=== PATIENT | male | born 1950 | race Caucasian/White ===

== ENCOUNTER → 2018-11-22 | Outpatient (CLI) | payer MEDICARE, BC | LOC: LABPAT 17:17 | PROVIDERS: ATTEND Orthopaedic Surgery | DX: Z01.812 Encounter for preprocedural laboratory examination (principal) | CPT/HCPCS: 87070 ==

== ENCOUNTER 2018-12-12 11:29 | Inpatient (IN) | payer BC, MEDICARE ==
--- NOTE | 2018-12-11 12:20 | HP ---
HISTORY AND PHYSICAL REASON FOR ADMISSION: Surgery scheduled for 12/12/2018 HISTORY OF PRESENT ILLNESS: Nick Betts is a 68-year-old patient seen with symptomatic right knee osteoarthritis. We discussed treatment options. He elected to proceed with right total knee arthroplasty. Consent regarding the procedure was obtained. Medical clearance was provided by Dr. Ribera. PAST MEDICAL HISTORY: Hypertension, [id number] diabetes, hyperlipidemia. PAST SURGICAL HISTORY: Noncontributory. MEDICATIONS: Amlodipine, lisinopril, metformin, propranolol. ALLERGIES: None. SOCIAL HISTORY: He smokes 5-7 cigarettes a day. PHYSICAL EXAMINATION: Physical evaluation of the right knee is range of motion is negative 4-100 degrees. Tenderness medial joint line. Crepitus medial and patellofemoral compartments range of motion. Ligaments are stable. Hip rotation without pain. Distal neurovascular exam intact. RADIOGRAPHS: Radiographs of the right knee revealed severe medial and severe patellofemoral compartment osteoarthritis. IMPRESSION: 1. Right knee osteoarthritis. 2. Hypertension. 3. Hyperlipidemia. 4. Jvv-cscezkw-grndrxctf diabetes. PLAN: Right total knee arthroplasty. Surgery scheduled for 12/12/2018. MMODL / IJN: [id number] /
[~2018-12-12 11:29] MED LIST: ACETAMINOPHEN TAB 500 MG TAB PO ONE; DEXAMETHASONE SOD PHOSPHATE 10 MG/ML 1 ML VIAL IV ONE; LACTATED RINGERS 1,000 ML IV SCH; MELOXICAM 7.5 MG TAB PO ONE; MIDAZOLAM 2 MG/2 ML VIAL IV PRN; ONDANSETRON 4 MG/2 ML VIAL IVP ONE; SCOPOLAMINE 1.5MG/72HR PATCH TRANSDERM ONE; TRANEXAMIC ACID 1,000 MG in SODIUM CHLORIDE 0.9% 100 ML IVPB ONE; ceFAZolin IN SWFI 2 GM/20 ML SYRINGE IVP ONE
[2018-12-12] MEDS ORDERED: LIDOCAINE 1% 20 ML VIAL (10MG/ML) FOR IV START INTRADERMA ONE (11:58)
[2018-12-12 12:07] LABS: Glucose,Whole Blood 109 mg/dL (75-99)
[2018-12-12] MEDS ORDERED: fentaNYL (PF) 50 MCG/ML 2 ML AMP IV ONE (12:20)
[2018-12-12] MEDS ORDERED: ROPIVACAINE 246.25 MG, EPINEPHrine 0.5 MG, KETOROLAC 30 MG, WATER FOR INJECTION,STERILE... MISCELLANE ONE ×4 (12:52)
[2018-12-12] MEDS ORDERED: PROPOFOL 10 MG/ML 20 ML VIAL IV ONE (13:14)
[2018-12-12] MEDS ORDERED: SUCCINYLCHOLINE CHLORIDE VIAL 200 MG/10 ML VIAL IV ONE (13:14)
[2018-12-12] MEDS ORDERED: fentaNYL (PF) 50 MCG/ML 2 ML AMP ONE (13:14)
[2018-12-12] MEDS ORDERED: LIDOCAINE 1% INJ 10MG/ML (20 ML MDV) ONE (13:14)
[2018-12-12] MEDS ORDERED: SODIUM CHLORIDE 0.9% 100 ML BAG ONE (13:14)
[2018-12-12] MEDS ORDERED: TRANEXAMIC ACID 1,000 MG/10 ML VIAL ONE (13:14)
[2018-12-12] MEDS ORDERED: MIDAZOLAM 2 MG/2 ML VIAL ONE (13:14)
[2018-12-12] MEDS ORDERED: PHENYLEPHRINE-0.9% NACL SYG 1 MG/10 ML SYRINGE ONE (13:14)
[2018-12-12] MEDS ORDERED: ceFAZolin 3,000 MG in SODIUM CHLORIDE 0.9% IRRIGATIO 3,000 ML IRRIGATION ONE (13:57)
[2018-12-12] MEDS ORDERED: LACTATED RINGERS 1,000 ML IV ONE (13:58)
[2018-12-12] MEDS ORDERED: ROPIVACAINE 1,100 MG, SODIUM CHLORIDE 0.9% 500 ML 330 ML MISCELLANE PRN ×2 (15:10)
--- NOTE | 2018-12-12 15:10 | P.ONQ ---
Anesthesiology Proc Note - PNB - Peripheral Nerve Block Performed Right Adductor Canal Infusion Time Out Performed: Yes Procedure Start Time: 12:17 Indication: Acute Post-Operative Pain Specifically requested for management of pain by DrJerome: Karl Steele Sedation Type: Sedate with meaningful contact maintained Preparation: Sterile Prep Position: Supine Catheter Depth at Skin (cm): 7 Catheter: Indwelling Needle Types: Other (see comment) (Pajunk) Needle Size: 100mm (4") Needle Gauge: 18 Technique: Ultrasound Injectate: 0.5% Ropivacaine (see comment for volume) (20) Blood Aspirated: No Pain Paresthesia on Injection Noted: No Resistance on Injection: Normal Events: Uneventful and Well Tolerated
--- NOTE | 2018-12-12 15:16 | P.OP ---
Date of Procedure: 12/12/18 Preoperative Diagnosis: Right knee osteoarthritis Postoperative Diagnosis: Right knee osteoarthritis Procedure(s) Performed: Right total knee arthroplasty Implants: 1. Depuy attune size 8 right cruciate-retaining cemented femur 2. Depuy attune size 8 fixed-bearing cemented tibial baseplate 3. Depuy attune size 8 fixed-bearing cruciate retaining 6 mm polyethylene tibial insert 4. Depuy attune 41 mm all polyethylene cemented patella Anesthesia: regional (Adductor canal catheter), local, spinal Surgeon: Karl Steele [employer] Sales Consultant #1: Lencho Díaz Estimated Blood Loss (ml): 50 Pathology: other (Bone) Condition: stable Disposition: PACU Indications for Procedure: 68-year-old patient seen with symptomatic right knee osteoarthritis. After having treatment options discussed, he elected to proceed with total knee a rthroplasty. Operative Findings: see description of procedure Description of Procedure: Patient was taken to the operative suite after having an adductor canal catheter placed by the department of anesthesia for postoperative pain management. Patient underwent a spinal anesthetic by the department of anesthesia. Patient was given preoperative IV intake antibiotics and TXA. A well-padded tourniquet was placed about the right lower extremity. The lower extremity was then prepped and draped in the normal sterile orthopedic fashion. The extremity was elevated, a tourniquet was insufflated to 300. A standard anterior incision was made sharply through skin. Dissection was taken down through the subcutaneous soft tissues down to the extensor mechanism. A medial arthrotomy was performed, patella was everted and knee was flexed. There was advanced osteoarthritis noted. I introduced my distal intramedullary femoral drill. I then introduced the distal femoral cutting jig. Binh LOPEZ secured the cutting jig with 2 pins. I held retractors in position while Binh LOPEZ performed the distal femoral resection through the guide area we now removed her distal femoral cutting guide. We now placed our 4-in-1 femoral cutting block and positioned and it was secured with 2 pins by Binh LOPEZ while I held the block in position. The distal femoral finishing was now completed. A proximal tibial cutting guide was positioned. I held the guide in the appropriate position with both hands well Binh LOPEZ inserted stabilizing pins into the guide. Proximal tibial cut was made. We now placed a trial femoral component into position, along with an appropriate size tibial tray and insert. We now took the knee through range of motion and had full extension good flexion and good overall soft tissue balance noted. The patella was everted and stabilized with 2 towel clips held by Binh LOPEZ while I performed a flush with patellar quad tendon utilizing a fresh sawblade. We templated the patella, appropriate drill holes were made. An appropriate trial patella was positioned, knee was taken through full range of motion with the patella tracking very nicely. The trial patella was removed. Drill holes were made through the femoral component. All trial components were removed after marking off the appropriate rotation of the tibia. Retractors were now positioned along the proximal tibia. An appropriate keel punch was made with the appropriate size tibial guide by myself on Binh LOPEZ assisted by holding retractors. At this point appropriate size implants were chosen and opened. The joint was irrigated copiously with pulse lavage mechanical irrigation. The posterior capsule was infiltrated with local analgesic. The wound was irrigated with pulse lavage mechanical irrigation. We mixed antibiotic methylmethacrylate. We placed the knee into flexion. We placed multiple retractors assisted by Binh LOPEZ to expose the proximal tibia. Once the methyl methacrylate was ready, the tibial component was cemented into place removing any excess methylmethacrylate form by both myself and Binh LOPEZ. The femoral component was cemented into place removing the removing any excess methylmethacrylate performed by both myself and Binh LOPEZ. We then inserted the appropriate size polyethylene tibial insert. We made sure that it was locked into position. We took the knee into full extension, and then back in a flexion making sure we had removed any excess methylmethacrylate. The patellar component was then cemented down and secured with clamp. Excess methylmethacrylate removed. We kept the knee in full extension, patellar clamp in position until methylmethacrylate had hardened. Once it had hardened the patellar clamp was removed. The knee was taken through full range of motion. The patella tracked nicely. There was good soft tissue balancing. The tourniquet was now released. Additional hemostasis was achieved via electrocautery. A second gram of TXA was given. The wound again was irrigated with pulse lavage mechanical irrigation. The superficial soft tissues were infiltrated local analgesic. The extensor mechanism was repaired with Vicryl. We checked the repair with range of motion and it was stable. The subcutaneous soft tissues were repaired with Vicryl in layers. The skin was approximated with pernio/Dermabond. Sterile dressings were applied followed by loose web roll and Chava bandage. The patient was transferred to a bed, and taken to recovery in stable and satisfactory condition. Binh LOPEZ assisted with this complex procedure.
[2018-12-12] MEDS ORDERED: NALOXONE 0.4 MG/ML 1 ML VIAL IV PRN (15:17)
[2018-12-12] MEDS ORDERED: HYDROcodone/APAP 5-325MG 1 EACH TAB PO PRN (15:17)
[2018-12-12] MEDS ORDERED: ONDANSETRON 4 MG/2 ML VIAL IVP PRN (15:17)
[2018-12-12] MEDS ORDERED: traMADol 50 MG TAB PO PRN (15:17)
[2018-12-12] MEDS ORDERED: HYDROmorphone 0.5 MG/0.5 ML SYRINGE IVP PRN ×2 (15:17)
[2018-12-12] MEDS: HYDROmorphone 0.5 MG/0.5 ML SYRINGE IVP PRN ×3 (15:38→18:02)
--- NOTE | 2018-12-12 16:16 | XR ---
EXAMINATION TYPE: XR knee limited RT DATE OF EXAM: 12/12/2018 COMPARISON: None HISTORY: Post knee replacement TECHNIQUE: 2 view right knee FINDINGS: Tibial and femoral components of in place. No acute fractures are evident. Along the medial femoral condyle adjacent to the femoral prosthesis there is a disruption of the cortex which is felt to be postsurgical in nature. Postsurgical changes are evident within the soft tissues. IMPRESSION: 1. No displaced fractures evident. Tibial femoral components of in place. There is a cortical disrup tion along the medial femoral condyle which may be postsurgical in nature.
[2018-12-12 16:48] LABS: Glucose,Whole Blood 138 mg/dL (75-99)
--- NOTE | 2018-12-12 18:00 | P.CONS ---
History of Present Illness - Reason for Consult Consult date: 12/12/18 Medical management Requesting physician: Karl Steele - Chief Complaint Medical management - History of Present Illness 68-year-old male with PMH of diabetes mellitus, hypertension, hyperlipidemia, severe right knee osteoarthritis presents to [facility] for elective right knee replacement. Patient was seen and examined after surgery. Underwent right knee arthroplasty with addition of pain pump. There was no complications with the surgery. Patient complains of 8 out of 10 pain in his right knee. Patient denies any headaches, lower extremity edema, nausea, vomiting, fever, chills, cough, chest pain, shortness breath, palpitations, changes in urination or bowel habits. No changes in appetite or weight. Patient denies any dizziness, numbness/weak ness/tingling of the extremities. Review of Systems Pertinent positives and negatives as discussed in HPI, a complete review of systems was performed and all other systems are negative. Past Medical History Past Medical History: Diabetes Mellitus, Hyperlipidemia, Hypertension, Osteoarthritis (OA) History of Any Multi-Drug Resistant Organisms: None Reported Past Surgical History: Cholecystectomy, Tonsillectomy Past Anesthesia/Blood Transfusion Reactions: No Reported Reaction Smoking Status: Current every day smoker - Past Family History Mother Family Medical History: Cancer Sister(s) Family Medical History: Cancer Medications and Allergies Home Medications Medication Instructions Recorded Confirmed Type Aspirin [Adult Low Dose Aspirin EC] 81 mg PO DAILY 12/05/18 12/12/18 History Diabetes Health Tab 6 tab PO DAILY 12/05/18 12/12/18 History Escitalopram [Lexapro] 10 mg PO DAILY 12/05/18 12/12/18 History Lisinopril 40 mg PO DAILY 12/05/18 12/12/18 History Meloxicam [Mobic] 15 mg PO DAILY 12/05/18 12/12/18 History Propranolol HCl 80 mg PO QAM 12/05/18 12/12/18 History Rosuvastatin Calcium [Crestor] 20 mg PO DAILY 12/05/18 12/12/18 History amLODIPine BESYLATE [Norvasc] 10 mg PO DAILY 12/05/18 12/12/18 History metFORMIN HCL [Glucophage] 1,000 mg PO BID 12/05/18 12/12/18 History Allergies Allergy/AdvReac Type Severity Reaction Status Date / Time No Known Allergies Allergy Verified 12/12/18 11:51 Physical Exam Vitals: Vital Signs Temp Pulse Resp BP Pulse Ox 12/12/18 16:32 62 16 122/65 93 L 12/12/18 16:17 54 L 16 125/64 95 12/12/18 16:02 53 L 16 137/79 98 12/12/18 15:47 52 L 16 136/76 97 12/12/18 15:32 98 F 53 L 16 153/79 97 12/12/18 11:57 97.4 F L 59 L 16 169/81 98 Intake and Output 12/12/18 12/12/18 12/12/18 06:59 14:59 22:59 Intake Total 1301 400 Output Total 50 Balance 1301 350 Intake: IV 1301 400 Output: Estimated Blood Loss 50 General: [non toxic], [no distress], [appears at stated age] Derm: [warm], [dry] Head: [atraumatic], [normocephalic], [symmetric] Eyes: [EOMI], [no lid lag], [anicteric sclera] Mouth: [no lip lesion], [mucus membranes moist] Cardiovascular: [S1S2 reg], [no murmur], [positive DP pulse bilateral] Lungs: [CTA bilateral], [no rhonchi, no rales] , [no accessory muscle use] Abdominal: [soft], [ nontender to palpation], [no guarding], [no appreciable organomegaly] Ext: [no gross muscle atrophy], [no edema], [no contractures], [right knee restricted ROM due to pain, dressing applied] Neuro: [no focal neuro deficits] Psych: [Alert], [oriented], [appropriate affect] Results Labs: Abnormal Lab Results - Last 24 Hours (Table) 12/12/18 12/12/18 Range/Units 12:02 16:44 POC Glucose (mg/dL) 109 H 138 H (75-99) mg/dL Assessment and Plan Assessment: Assessment and Plan Hypertension Diabetes mellitus Hyperlipidemia Right knee osteoarthritis status post total knee replacement postop day 0 BP 122/65. Plan: Continue amlodipine, lisinopril, propranolol. Monitor vitals, adjust medications as necessary. Bnkmi-le-vpau glucose 138. Plan: Insulin sliding scale. Hypoglycemic precautions. Regular Accu-Cheks. Plan: Continue Lipitor. Management as per orthopedic surgery. DVT prophylaxis: [Lovenox] Discussed with: [Patient and family] Anticipated discharge: [Home] Anticipated discharge place: [1-2 days] A total of [30] minutes was spent on the care of this complex patient more than 50% of the time was spent in counseling and care coordination. Patient to remain full code. Thank you for this consult. Please call with any additional questions.
[2018-12-12] MEDS: ceFAZolin IN SWFI 2 GM/20 ML SYRINGE IVP SCH ×2 (18:03→23:52)
[2018-12-12] MEDS: LACTATED RINGERS 1,000 ML IV SCH ×2 (18:05→23:55)
[2018-12-12 18:27] VITALS: BMI 27.2
[2018-12-12] MEDS: HYDROcodone/APAP 5-325MG 1 EACH TAB PO PRN (19:53)
[2018-12-12 20:25] LABS: Glucose,Whole Blood 222 mg/dL (75-99)
[2018-12-12] MEDS: SENNOSIDES-DOCUSATE SODIUM 1 EACH TAB PO SCH (20:34)
[2018-12-12] MEDS: INSULIN ASPART (NovoLOG) 100 UNIT/ML VIAL SQ SCH (20:34)
[2018-12-13] MEDS: HYDROcodone/APAP 5-325MG 1 EACH TAB PO PRN ×2 (02:01→09:48)
[2018-12-13] MEDS: INSULIN ASPART (NovoLOG) 100 UNIT/ML VIAL SQ SCH ×4 (07:20→20:55)
[2018-12-13 07:30] LABS: Basophils % (A) 0 %; Eosinophils # (A) 0.1 k/uL (0-0.7); Eosinophils % (A) 1 %; HCT 35.1 % (39.0-53.0); HGB 11.4 gm/dL (13.0-17.5); Lymphocytes # (A) 1.8 k/uL (1.0-4.8); Lymphocytes % (A) 14 %; MCH 29.2 pg (25.0-35.0); MCHC 32.5 g/dL (31.0-37.0); Mean Platelet Volume 7.7; Monocytes # (A) 0.7 k/uL (0-1.0); Monocytes % (A) 6 %; Neutrophils % (A) 78 %; Platelet Count 208 k/uL (150-450); RDW 14.3 % (11.5-15.5); WBC 12.8 k/uL (3.8-10.6)
[2018-12-13 07:32] LABS: Glucose,Whole Blood 114 mg/dL (75-99)
[2018-12-13] MEDS: LACTATED RINGERS 1,000 ML IV SCH (09:45)
[2018-12-13] MEDS: amLODIPine 10 MG TAB PO SCH (09:47)
[2018-12-13] MEDS: LISINOPRIL 20 MG TAB PO SCH (09:47)
[2018-12-13] MEDS: ESCITALOPRAM 10 MG TAB PO SCH (09:47)
[2018-12-13] MEDS: MELOXICAM 7.5 MG TAB PO SCH (09:48)
[2018-12-13] MEDS: ATORVASTATIN 40 MG TAB PO SCH (09:48)
[2018-12-13] MEDS: PROPRANOLOL 40 MG TAB PO SCH (09:48)
[2018-12-13] MEDS: ENOXAPARIN 30 MG/0.3 ML SYRINGE SQ SCH ×2 (09:48→20:55)
[2018-12-13] MEDS: ASPIRIN 81 MG PO SCH (09:48)
--- NOTE | 2018-12-13 09:57 | P.PN ---
Subjective Progress Note Date: 12/13/18 Principal diagnosis: right knee pain Patient is a 68-year-old male past medical history of osteoarthritis of the right knee, diabetes mellitus, hypertension, and dyslipidemia who presented to [facility] for elective right total knee arthroplasty. Patient underwent procedure without any immediate postoperative complications on 12/12/18. Patient seen and examined at bedside. He is having some right knee pain after ambulating and doing the stairs with physical therapy. He denies any chest pain, shortness of breath, nausea, or vomiting. He states that his blood sugars typically run between 116 and 130 at home. He takes metformin twice daily and was taking a diabetic health tablet. His sense held the diabetic health tablet as it contained vitamin D and vitamin E. He would like to start this after surgery. Objective - Vital Signs Vital signs: Vital Signs Temp 98.3 F 12/13/18 07:00 Pulse 80 12/13/18 07:00 Resp 16 12/13/18 07:00 BP 137/76 12/13/18 07:00 Pulse Ox 98 12/13/18 07:00 Intake & Output 12/12/18 12/13/18 12/13/18 18:59 06:59 18:59 Intake Total 1701 1600 Output Total 50 3 Balance 1651 1597 Intake: IV 1701 Intake, IV Titration 1600 Amount Lactated Ringers 1,000 ml 1600 @ 100 mls/hr IV .Q10H [facility] Rx#:[id number] Output: Urine 3 Estimated Blood Loss 50 Other: # Voids 1 - Exam General: non toxic, no distress, appears at stated age Derm: compression stocking and dressing inplace right leg without drainage noted. warm, dry Head: atraumatic, normocephalic, symmetric Eyes: EOMI, no lid lag, anicteric sclera Mouth: no lip lesion, mucus membranes moist Cardiovascular: S1S2 reg, no murmur, positive posterior tibial pulse bilateral, Lungs: decreased bs bilateral, no rhonchi, no rales , no accessory muscle use Abdominal: soft, nontender to palpation, no guarding, no appreciable organomegaly Ext: no gross muscle atrophy, no edema, no contractures Neuro: CN II-XI grossly intact, no focal neuro deficits Psych: Alert, oriented, appropriate affect - Labs CBC & Chem 7: 12/13/18 07:09 Labs: Abnormal Lab Results - Last 24 Hours (Table) 12/12/18 12/12/18 12/12/18 Range/Units 12:02 16:44 20:14 WBC (3.8-10.6) k/uL RBC (4.30-5.90) m/uL Hgb (13.0-17.5) gm/dL Hct (39.0-53.0) % Neutrophils # (1.3-7.7) k/uL POC Glucose (mg/dL) 109 H 138 H 222 H (75-99) mg/dL 12/13/18 12/13/18 Range/Units 07:02 07:09 WBC 12.8 H (3.8-10.6) k/uL RBC 3.90 L (4.30-5.90) m/uL Hgb 11.4 L (13.0-17.5) gm/dL Hct 35.1 L (39.0-53.0) % Neutrophils # 10.0 H (1.3-7.7) k/uL POC Glucose (mg/dL) 114 H (75-99) mg/dL Assessment and Plan Assessment: Patient is a 68 yo male here for elective right total knee arthroplasty. DM 2 well controlled, on orals - resume metformin on discharge - resume diabetes health tablet in 5 days, if okay with ortho Acute blood loss anemia - outpatient follow up with PCP - anticipate quick recovery - no need for iron therapy at this time. HTN, controlled - continue norvasc, propranolol, lisinopril HLD - continue crestor Medically optimized for discharge at the discretion of ortho. Thank you for allowing us to participate in the care of this patient. Do not hesitate to contact us with questions. Someone can be reached from the [facility] hospitalist group at all hours of the day at [phone].
--- NOTE | 2018-12-13 10:35 | P.PN ---
Progress Note - Text 12/13 094 68-year-old male status post total knee replacement by Dr. Steele. Patient has a On-Q pump for postop pain control with the solution running at 8 mL an hour patient is not comfortable because he has been exercising his leg. I advised him to continue the On-Q pump infusion along with oral narcotics
[2018-12-13 12:01] LABS: Glucose,Whole Blood 167 mg/dL (75-99)
[2018-12-13 15:55] LABS: Hemoglobin A1C 6.3 % (4.0-6.0)
[2018-12-13] MEDS ORDERED: HYDROcodone/APAP 7.5-325MG 1 EACH TAB PO PRN ×2 (15:57)
--- NOTE | 2018-12-13 16:00 | P.PN ---
Subjective Progress Note Date: 12/13/18 Principal diagnosis: Status post right total knee arthroplasty Patient evaluated today at bedside on a few separate occasions. He is doing fairly well. He does note some increase in pain and difficulty getting out of bed. Denies any chest pain or shortness of breath. Objective - Vital Signs Vital signs: Vital Signs Temp 98 F 12/13/18 15:00 Pulse 62 12/13/18 15:00 Resp 12 12/13/18 15:00 BP 148/64 12/13/18 15:00 Pulse Ox 96 12/13/18 15:00 Intake & Output 12/12/18 12/13/18 12/13/18 18:59 06:59 18:59 Intake Total 1701 1600 Output Total 50 3 Balance 1651 1597 Intake: IV 1701 Intake, IV Titration 1600 Amount Lactated Ringers 1,000 ml 1600 @ 100 mls/hr IV .Q10H [facility] Rx#:[id number] Output: Urine 3 Estimated Blood Loss 50 Other: # Voids 1 - Exam Right lower extremity: Incision is clean, dry, and intact. The exofin fusion tape is in good condition. There is minimal soft tissue swelling and ecchymosis surrounding the medial and lateral aspects of the incision. Calf is soft, no tenderness with palpation. Plantar flexion, dorsiflexion, EHL, FHL are intact. Sensory exam to light touch throughout the extremity is intact, dorsal pedis pulses 2+. - Labs CBC & Chem 7: 12/13/18 07:09 Labs: Abnormal Lab Results - Last 24 Hours (Table) 12/12/18 12/12/18 12/13/18 Range/Units 16:44 20:14 07:02 WBC (3.8-10.6) k/uL RBC (4.30-5.90) m/uL Hgb (13.0-17.5) gm/dL Hct (39.0-53.0) % Neutrophils # (1.3-7.7) k/uL POC Glucose (mg/dL) 138 H 222 H 114 H (75-99) mg/dL Hemoglobin A1c (4.0-6.0) % 12/13/18 12/13/18 12/13/18 Range/Units 07:09 07:09 11:49 WBC 12.8 H (3.8-10.6) k/uL RBC 3.90 L (4.30-5.90) m/uL Hgb 11.4 L (13.0-17.5) gm/dL Hct 35.1 L (39.0-53.0) % Neutrophils # 10.0 H (1.3-7.7) k/uL POC Glucose (mg/dL) 167 H (75-99) mg/dL Hemoglobin A1c 6.3 H (4.0-6.0) % Assessment and Plan Plan: Assessment: Postop day #1 status post right total knee arthroplasty Plan: Pain control, we'll increase Micanopy to 7.5 mg/325 mg GI and DVT prophylaxis, continue current medication Wound care instructions discussed Icing and elevating techniques discussed Continue her physical therapy Medical recommendations Discharge planning: With patients increase in pain and difficulty with getting out of bed, we'll keep patient one additional night, and patient status has been made, hopeful discharge home tomorrow Time with Patient: Less than 30
[2018-12-13 17:10] LABS: Glucose,Whole Blood 87 mg/dL (75-99)
[2018-12-13 20:37] LABS: Glucose,Whole Blood 214 mg/dL (75-99)
[2018-12-13] MEDS: SENNOSIDES-DOCUSATE SODIUM 1 EACH TAB PO SCH (20:55)
[2018-12-13] MEDS: HYDROmorphone 0.5 MG/0.5 ML SYRINGE IVP PRN (20:55)
[2018-12-13] MEDS: HYDROcodone/APAP 7.5-325MG 1 EACH TAB PO PRN (22:37)
[2018-12-14] MEDS: HYDROcodone/APAP 7.5-325MG 1 EACH TAB PO PRN ×2 (02:54→08:59)
[2018-12-14 07:30] LABS: Glucose,Whole Blood 142 mg/dL (75-99)
[2018-12-14 08:12] LABS: HCT 32.8 % (39.0-53.0); HGB 10.6 gm/dL (13.0-17.5); MCH 29.3 pg (25.0-35.0); MCHC 32.2 g/dL (31.0-37.0); MCV 90.9 fL (80.0-100.0); Platelet Count 162 k/uL (150-450); RBC 3.61 m/uL (4.30-5.90); RDW 14.1 % (11.5-15.5)
[2018-12-14] MEDS: MELOXICAM 7.5 MG TAB PO SCH (08:58)
[2018-12-14] MEDS: PROPRANOLOL 40 MG TAB PO SCH (08:59)
[2018-12-14] MEDS: ESCITALOPRAM 10 MG TAB PO SCH (09:00)
[2018-12-14] MEDS: ATORVASTATIN 40 MG TAB PO SCH (09:00)
[2018-12-14] MEDS: ENOXAPARIN 30 MG/0.3 ML SYRINGE SQ SCH (09:00)
[2018-12-14] MEDS: LISINOPRIL 20 MG TAB PO SCH (09:00)
[2018-12-14] MEDS: amLODIPine 10 MG TAB PO SCH (09:00)
[2018-12-14] MEDS: ASPIRIN 81 MG PO SCH (09:00)
[2018-12-14] MEDS: INSULIN ASPART (NovoLOG) 100 UNIT/ML VIAL SQ SCH ×2 (09:01→14:03)
[2018-12-14] MEDS ORDERED: MAGNESIUM HYDROXIDE 2,400 MG/10 ML CUP PO PRN (09:03)
[2018-12-14 09:21] VITALS: BP 174/80; PULSE 58; RESP 12; TEMP 98.3
--- NOTE | 2018-12-14 10:57 | P.PN ---
Subjective Progress Note Date: 12/14/18 Principal diagnosis: right knee pain Patient is a 68-year-old male past medical history of osteoarthritis of the right knee, diabetes mellitus, hypertension, and dyslipidemia who presented to [facility] for elective right total knee arthroplasty. Patient underwent procedure without any immediate postoperative complications on 12/12/18. He struggled with pain control on 12/13. Patient seen and examined at bedside. Pain is better, still unable to lift his leg onto the bed on his own, and concerned about this. I encouraged him to speak with ortho about this, he also stated that if it didn't get better he woud come back to the hospital. I again encouraged that he call the ortho office first for further instruction. He has been struggling with constipation and is currently working on a dose of miralax and prune juice. No chest pain, sob, or nausea. Objective - Vital Signs Vital signs: Vital Signs Temp 98.3 F 12/14/18 07:00 Pulse 58 L 12/14/18 07:00 Resp 12 12/14/18 07:00 BP 174/80 12/14/18 07:00 Pulse Ox 97 12/14/18 07:00 Intake & Output 12/13/18 12/14/18 12/14/18 18:59 06:59 18:59 Intake Total 400 500 Balance 400 500 Intake: Oral 400 500 Other: Voiding Method Toilet Toilet # Voids 2 - Exam General: non toxic, no distress, appears at stated age Derm: compression stocking and dressing in place right leg without drainage noted. warm, dry Head: atraumatic, normocephalic, symmetric Eyes: EOMI, no lid lag, anicteric sclera Mouth: no lip lesion, mucus membranes moist Cardiovascular: S1S2 reg, no murmur, positive posterior tibial pulse bilateral, Lungs: decreased bs bilateral, no rhonchi, no rales , no accessory muscle use Abdominal: soft, nontender to palpation, no guarding, no appreciable organomegaly Ext: no gross muscle atrophy, no edema, no contractures Neuro: CN II-XII grossly intact, no focal neuro deficits Psych: Alert, oriented, appropriate affect - Labs CBC & Chem 7: 12/14/18 07:31 Labs: Abnormal Lab Results - Last 24 Hours (Table) 12/13/18 12/13/18 12/13/18 Range/Units 07:09 11:49 20:26 RBC (4.30-5.90) m/uL Hgb (13.0-17.5) gm/dL Hct (39.0-53.0) % POC Glucose (mg/dL) 167 H 214 H (75-99) mg/dL Hemoglobin A1c 6.3 H (4.0-6.0) % 12/14/18 12/14/18 Range/Units 07:18 07:31 RBC 3.61 L (4.30-5.90) m/uL Hgb 10.6 L (13.0-17.5) gm/dL Hct 32.8 L (39.0-53.0) % POC Glucose (mg/dL) 142 H (75-99) mg/dL Hemoglobin A1c (4.0-6.0) % Assessment and Plan Assessment: Patient is a 68 yo male here for elective right total knee arthroplasty. DM 2 well controlled, on orals - had evelated BG yesterday which improved today. - resume metformin on discharge - resume diabetes health tablet in 4 days, if okay with ortho Acute blood loss anemia - outpatient follow up with PCP - anticipate quick recovery - no need for iron therapy at this time. HTN, controlled - continue norvasc, propranolol, lisinopril HLD - continue crestor Medically optimized for discharge at the discretion of ortho. Thank you for allowing us to participate in the care of this patient. Do not hesitate to contact us with questions. Someone can be reached from the [facility] hospitalist group at all hours of the day at [phone].
--- NOTE | 2018-12-14 11:04 | P.PN ---
Subjective Progress Note Date: 12/14/18 Principal diagnosis: Status post right total knee arthroplasty Patient evaluated at bedside, resting comfortably. He notes difficulty with keeping the leg in and out of bed. He notes the pain is better. He does note some constipation. Denies any chest pain or shortness of breath. Objective - Vital Signs Vital signs: Vital Signs Temp 98.3 F 12/14/18 07:00 Pulse 58 L 12/14/18 07:00 Resp 12 12/14/18 07:00 BP 174/80 12/14/18 07:00 Pulse Ox 97 12/14/18 07:00 Intake & Output 12/13/18 12/14/18 12/14/18 18:59 06:59 18:59 Intake Total 400 500 Balance 400 500 Intake: Oral 400 500 Other: Voiding Method Toilet Toilet # Voids 2 - Exam Right lower extremity: Incision is clean, dry, and intact. The exofin fusion tape is in good condition. There is minimal soft tissue swelling and ecchymosis surrounding the medial and lateral aspects of the incision. Calf is soft, no tenderness with palpation. Plantar flexion, dorsiflexion, EHL, FHL are intact. Sensory exam to light touch throughout the extremity is intact, dorsal pedis pulses 2+. - Labs CBC & Chem 7: 12/14/18 07:31 Labs: Abnormal Lab Results - Last 24 Hours (Table) 12/13/18 12/13/18 12/13/18 Range/Units 07:09 11:49 20:26 RBC (4.30-5.90) m/uL Hgb (13.0-17.5) gm/dL Hct (39.0-53.0) % POC Glucose (mg/dL) 167 H 214 H (75-99) mg/dL Hemoglobin A1c 6.3 H (4.0-6.0) % 12/14/18 12/14/18 Range/Units 07:18 07:31 RBC 3.61 L (4.30-5.90) m/uL Hgb 10.6 L (13.0-17.5) gm/dL Hct 32.8 L (39.0-53.0) % POC Glucose (mg/dL) 142 H (75-99) mg/dL Hemoglobin A1c (4.0-6.0) % Assessment and Plan Plan: Assessment: Postop day #2 status post right total knee arthroplasty Plan: Pain control, plan for discharge home on [place] 7.5 mg/325 mg GI and DVT prophylaxis, plan for aspirin 81 mg twice a day for a month Wound care instructions discussed Icing and elevating techniques discussed Continue her physical therapy Medical recommendations Currently working with nursing and constipation, he's receiving a few different medical modalities. Also discussion with the patient regarding the weakness and difficulty with lifting the leg. This will continue to improve as he worked with physical therapy. Discharge planning: Plan for discharge home today Time with Patient: Less than 30
--- NOTE | 2018-12-14 11:06 | P.DS ---
Providers Date of admission: 12/12/2018 Expected date of discharge: 12/14/18 Attending physician: Karl Steele Consults: 12/12/18 15:17 Consult Physician Routine Consulting Provider: Iman Self Consult Reason/Comments: Medical management Do you want consulting provider notified?: Yes Primary care physician: Reza Ribera [facility] Hospital Course: Date of admission: 12/12/2018 Date of discharge: 12/14/2018 Admission diagnosis: Status post right total knee arthroplasty Discharge diagnosis: Same Attending physician: Dr. Steele Surgical procedures: Right total knee arthroplasty Brief history: Patient is a 68-year-old male with a history of progressive primary right knee osteoarthritis. At this point patient has failed conservative treatment measures and has opted to proceed with a elective right total knee arthroplasty. Hospital course: Details of patient's surgery can be found in operative report. Patient tolerated the procedure well and was subsequently transported to orthopedic floor. Patient's orthopeidc and medical care was provided daily. Patient had daily laboratory tests performed for evaluation of overall blood counts. Patient had daily physical therapy to include strengthening range of motion as well as education with walker ambulation. Patient had daily CPM usage as part of their physical therapy program. Patient was treated with Lovenox for their postoperative DVT prophylaxis during their inpatient stay. Patient was noted to have a relatively uneventful postoperative course. Patient reported satisfactory pain control with oral pain medications by postoperative day 0. Patient showed satisfactory progress with physical therapy. Patient moved steadily through the program and had no difficulty meeting the goals by po stoperative day 2. Given patient's otherwise satisfactory course and having met physical therapy goals, plan is to discharge patient home on postoperative day 2. Discharge condition/disposition: Patient will be discharged home in stable condition. Discharge medications: Instructions are given on resumption of patient's normal daily medications per primary care recommendation, in addition patient will be prescribed Lantry 7.5 mg/325 mg, Colace 100 mg. Discharge instructions: 1. Wound care and infection precautions, keep incision dry and covered while showering, no lotions, creams, moisturizers. No soaking, tubs, pools, hottubs. Do not scrub over the incision. 2. Weight-bear as tolerated with walker / cane until follow-up. 3. Ice and elevate when necessary. Do not exceed 20 minutes per hour with ice pack. 4. Utilize compression sleeve until seen at first follow up appointment. 5. Visiting nursing care. 6. Home physical therapy including home CPM. 7. Pain meds and anticoagulants per prescription. 8. Pain medication has potential to cause constipation. Increase oral fluid and fiber intake. Contact primary care provider if you have not had a bowel movement within 48 hours after discharge 9. No anti-inflammatory medication until discussed at first post operative visit, this including Motrin, Aleve, Mobic, Diclofenac. 10. Follow up in office at 2 weeks postop with Binh Díaz PA-C 11. Follow up with your primary care doctor 7-10 days after discharge. 12. Contact [facility] with any questions, . Procedures: Right total knee arthroplasty Patient Condition at Discharge: Good Plan - Discharge Summary Discharge Rx Participant: No New Discharge Prescriptions: New Aspirin [Adult Low Dose Aspirin EC] 81 mg PO BID #60 tablet. Docmadisonte [Colace] 100 mg PO DAILY #30 capsule HYDROcodone/APAP 7.5-325MG [Lantry 7.5] 1 - 2 each PO Q6HR PRN #56 tab PRN Reason: Pain Continue Lisinopril 40 mg PO DAILY Escitalopram [Lexapro] 10 mg PO DAILY amLODIPine BESYLATE [Norvasc] 10 mg PO DAILY Propranolol HCl 80 mg PO QAM Rosuvastatin Calcium [Crestor] 20 mg PO DAILY metFORMIN HCL [Glucophage] 1,000 mg PO BID Diabetes Health Tab 6 tab PO DAILY #0 No Action Meloxicam [Mobic] 15 mg PO DAILY Discharge Medication List Escitalopram [Lexapro] 10 mg PO DAILY 12/05/18 [History] Lisinopril 40 mg PO DAILY 12/05/18 [History] Meloxicam [Mobic] 15 mg PO DAILY 12/05/18 [History] Propranolol HCl 80 mg PO QAM 12/05/18 [History] Rosuvastatin Calcium [Crestor] 20 mg PO DAILY 12/05/18 [History] amLODIPine BESYLATE [Norvasc] 10 mg PO DAILY 12/05/18 [History] metFORMIN HCL [Glucophage] 1,000 mg PO BID 12/05/18 [History] Diabetes Health Tab 6 tab PO DAILY #0 12/13/18 [Rx] Aspirin [Adult Low Dose Aspirin EC] 81 mg PO BID #60 tablet. 12/14/18 [Rx] Docusate [Colace] 100 mg PO DAILY #30 capsule 12/14/18 [Rx] HYDROcodone/APAP 7.5-325MG [Lantry 7.5] 1 - 2 each PO Q6HR PRN #56 tab 12/14/18 [Rx] Follow up Appointment(s)/Referral(s): [facility], [NON-STAFF] - Lencho Díaz PAC [PHYSICIAN SANDING MACHINE BUFFER] - 2 Weeks Activity/Diet/Wound Care/Special Instructions: Orthopedic Discharge Instructions: 1. Wound care and infection precautions, keep incision dry and covered while showering, no lotions, creams, moisturizers. No soaking, pools, hot tubs. Do not scrub over incision. 2. Weight-bear as tolerated with walker / cane until follow-up. 3. Ice and elevate when necessary. Do not exceed 20 minutes per hour with ice pack. 4. Utilize compression sleeve until seen at first follow up appointment. 5. Pain meds and anticoagulants per prescription. 6. Pain medication has potential to cause constipation. Increase oral fluid and fiber intake. Contact primary care provider if you have not had a bowel movement within 48 hours after discharge. 7. No anti-inflammatory medication until discussed at first post operative visit, this including Motrin, Aleve, Mobic, Diclofenac. 8. Follow up in office at 2 weeks postop with Binh Díaz PA-C 9. Follow up with your primary care doctor 7-10 days after discharge. 10. Contact [facility] with any questions, [phone]. 11. Please call [employer] once home to arrange delivery of continuous passive motion (CPM) machine - [phone] 12. [facility] [employer] will deliver walker to bedside before discharge today 13. [facility] will call patient and arrange first appointment to occur within 24 hours of discharge. Discharge Disposition: HOME WITH HOME HEALTH SERVICES
[2018-12-14 11:41] LABS: Glucose,Whole Blood 130 mg/dL (75-99)
== END 2018-12-14 14:51 | disposition home health service (06) | DRG 470 ==
LOC: OR 11:29 → 4SSUR 15:32 → UNDOADMIN 12-13 15:56 → OR 12-13 15:56 → UNDODISIN 12-14 14:51
PROVIDERS: ADMIT Orthopaedic Surgery; ATTEND Orthopaedic Surgery
PROC: 0SRC0J9 Replacement of Right Knee Joint with Synthetic Substitute, Cemented, Open Approach (ICD-10-PCS; principal; 2018-12-12 13:00)
DX: M17.11 Unilateral primary osteoarthritis, right knee (principal); D62 Acute posthemorrhagic anemia; E11.22 Type 2 diabetes mellitus with diabetic chronic kidney disease; N28.1 Cyst of kidney, acquired; I65.23 Occlusion and stenosis of bilateral carotid arteries; E78.5 Hyperlipidemia, unspecified; F17.210 Nicotine dependence, cigarettes, uncomplicated; K59.00 Constipation, unspecified; I12.9 Hypertensive chronic kidney disease with stage 1 through stage 4 chronic kidney disease, or unspecified chronic kidney disease; N18.9 Chronic kidney disease, unspecified; Z79.1 Long term (current) use of non-steroidal anti-inflammatories (NSAID); Z79.82 Long term (current) use of aspirin; Z79.84 Long term (current) use of oral hypoglycemic drugs; Z79.899 Other long term (current) drug therapy; Z90.49 Acquired absence of other specified parts of digestive tract; Z83.3 Family history of diabetes mellitus; Z80.3 Family history of malignant neoplasm of breast; Z80.49 Family history of malignant neoplasm of other genital organs; Z82.49 Family history of ischemic heart disease and other diseases of the circulatory system; Z84.1 Family history of disorders of kidney and ureter
CPT/HCPCS: 83036; 85025; 85027; 88300

== ENCOUNTER 2019-03-13 09:18 | Day surgery (SDC) | payer BC, MEDICARE ==
[2019-03-09 12:05] VITALS: BMI 27.1
--- NOTE | 2019-03-12 19:05 | HP ---
HISTORY AND PHYSICAL REASON FOR ADMISSION: Surgery scheduled 03/13/2019 HISTORY OF PRESENT ILLNESS: Nick Betts is a 68-year-old patient seen with right knee adhesions which were persistent after having undergone right total knee arthroplasty. We discussed treatment options. He elected to proceed with manipulation under anesthesia right knee with steroid injection. Consent regarding the procedure was obtained. PAST MEDICAL HISTORY: Hypertension, hyperlipidemia, man-kphvfez-obpdkfdfa diabetes. PAST SURGICAL HISTORY: Right total knee arthroplasty. MEDICATIONS: Amlodipine, aspirin, gabapentin, lisinopril, metformin, propranolol, simvastatin. ALLERGIES: None. SOCIAL HISTORY: Smokes cigarettes. PHYSICAL EVALUATION: Of the right knee: His range of motion is -3 to 85 degrees. His incision is well healed. Ligaments are stable. He does have some weakness with quadriceps strength. His distal neurovascular exam is intact. Right knee radiographs revealed a stable appearing total knee arthroplasty. IMPRESSION: 1. Right knee adhesions. 2. Right total knee arthroplasty. 3. Hypertension. 4. Hyperlipidemia. 5. Ess-pcyixka-zaeimivne diabetes. 6. Tobacco use. PLAN: Manipulation under anesthesia right knee with steroid injection. Surgery is 03/13/2019. MMODL / IJN: [id number] /
[~2019-03-13 09:18] MED LIST changes: -ACETAMINOPHEN TAB 500 MG TAB PO ONE; -DEXAMETHASONE SOD PHOSPHATE 10 MG/ML 1 ML VIAL IV ONE; +LIDOCAINE 1% 20 ML VIAL (10MG/ML) FOR IV START INTRADERMA PRN; -MELOXICAM 7.5 MG TAB PO ONE; -MIDAZOLAM 2 MG/2 ML VIAL IV PRN; -SCOPOLAMINE 1.5MG/72HR PATCH TRANSDERM ONE; -TRANEXAMIC ACID 1,000 MG in SODIUM CHLORIDE 0.9% 100 ML IVPB ONE; -ceFAZolin IN SWFI 2 GM/20 ML SYRINGE IVP ONE
[2019-03-13] MEDS ORDERED: DEXAMETHASONE SOD PHOSPHATE 10 MG/ML 1 ML VIAL IV ONE (10:46)
[2019-03-13 10:50] LABS: Glucose,Whole Blood 108 mg/dL (75-99)
[2019-03-13] MEDS ORDERED: KETOROLAC 30 MG/ML 1 ML VIAL ONE (12:15)
[2019-03-13] MEDS ORDERED: LIDOCAINE 1% INJ 10MG/ML (20 ML MDV) ONE (12:15)
[2019-03-13] MEDS ORDERED: PROPOFOL 10 MG/ML 20 ML VIAL IV ONE (12:15)
[2019-03-13] MEDS ORDERED: methylPREDNISolone ACETATE 80 MG/ML 1 ML VIAL INTRAARTIC ONE (12:20)
[2019-03-13] MEDS ORDERED: BUPIVACAIN-EPI 0.25%-1:200,000 30 ML VIAL INTRAARTIC ONE (12:20)
--- NOTE | 2019-03-13 12:23 | P.OP ---
Date of Procedure: 03/13/19 Preoperative Diagnosis: Right knee stiffness/adhesions Postoperative Diagnosis: Same Procedure(s) Performed: Manipulation under anesthesia right knee with steroid injection Anesthesia: MAC Surgeon: Karl Steele Estimated Blood Loss (ml): 0 Pathology: none sent Condition: stable Disposition: PACU Indications for Procedure: 68-year-old patient seen with persistent right knee adhesions/stiffness after having previously undergone total knee arthroplasty. I reviewed manipulation under anesthesia with steroid injection, he was agreeable and consent was obtained. Operative Findings: See description of procedure Description of Procedure: The patient was taken to a monitored anesthesia area. Patient underwent IV sedation by the department of anesthesia. The patient received preoperative IV antibiotics. Once sufficient anesthesia was achieved a manipulation under anesthesia was performed to the right knee. I was able to achieve near full extension with 135 of flexion. There was audible tearing of the adhesions. The superior lateral aspect of the knee was prepped and draped in the normal sterile orthopedic fashion. I injected 1 mL Depo-Medrol and 3 mL quarter percent Marcaine with epinephrine. A sterile Band-Aid was applied. The knee was again taken through range of motion. The patient was now awakened having tolerated procedure well.
[2019-03-13 12:37] VITALS: TEMP 98
[2019-03-13] MEDS: HYDROmorphone 0.5 MG/0.5 ML SYRINGE IVP PRN ×4 (12:42→13:10)
[2019-03-13] MEDS ORDERED: ENALAPRILAT 1.25 MG/ML 1 ML VIAL IVP ONE (13:22)
[2019-03-13 14:12] VITALS: BP 153/82; PULSE 50; RESP 16
== END 2019-03-13 14:26 | disposition home or self-care (01) ==
LOC: OR 09:18
PROVIDERS: ATTEND Orthopaedic Surgery
DX: M23.8X1 Other internal derangements of right knee (principal); I10 Essential (primary) hypertension; E78.5 Hyperlipidemia, unspecified; E11.9 Type 2 diabetes mellitus without complications; F17.210 Nicotine dependence, cigarettes, uncomplicated; F39 Unspecified mood [affective] disorder; Z96.651 Presence of right artificial knee joint; Z79.1 Long term (current) use of non-steroidal anti-inflammatories (NSAID); Z79.82 Long term (current) use of aspirin; Z79.84 Long term (current) use of oral hypoglycemic drugs; Z79.891 Long term (current) use of opiate analgesic; Z79.899 Other long term (current) drug therapy
CPT/HCPCS: 20610; 27570; J1040; J1100; J0690; J2405; J2001; J1885; J2704; J1170